=== PATIENT | female | born 1990 | race Hispanic/Latino ===

== ENCOUNTER → 2018-02-15 | Day surgery (SDC) | payer OTHER, SELFPAY ==
[~2018-02-15] MED LIST: BIRTH CONTROL; FENTANYL CITRATE/PF 100MCG/2 ML INJ ONE; HYOSCYAMINE SULFATE 0.5 MG/ML INJ ONE; KETAMINE HCL INJ 50 MG/ML 10 ML VIAL ONE; LIDOCAINE HCL 2% LOCAL INJ 5 ML SDV VIAL INJ ONE; MIDAZOLAM HCL 2 MG/2 ML VIAL ONE; PROPOFOL IV EMULSION 10 MG/ML 50 ML VIAL ONE
[2018-02-15 12:39] LABS: C DIFFICILE TOXIN A&B AMP PROB NEGATIVE (NEGATIVE); WBC,FECAL (FECAL LACTOFERRIN) NEGATIVE (NEGATIVE)
--- NOTE | 2018-02-15 14:37 | Operative Report ---
DATE OF PROCEDURE: February 15, 2018 PROCEDURE PERFORMED: Colonoscopy and a polypectomy with biopsies. INDICATIONS FOR COLONOSCOPY: Abdominal pain, recurrent diarrhea, abnormal CT scan. MEDICATIONS: Patient was done under MAC. Please see anesthesiologist's note. PROCEDURE: With the patient in left lateral decubitus position, flexible fiberoptic Olympus colonoscope was inserted into the rectum and advanced all the way to the cecum. Because of overlying the cecum, it appeared to be within normal limits. The ileocecal valve was intubated and the scope was advanced into the terminal ileum. Biopsies were obtained. The scope was then withdrawn back into the colon. It was then withdrawn slowly. Mucosa overlying the ascending and the transverse grossly appeared to be within normal limits. There were some patchy erythema and low-grade to moderate edema noted in the left colon. Multiple random biopsies were obtained. One polyp was hot biopsied from the sigmoid colon. The distal rectum also manifested similar inflammatory findings and biopsies were obtained. The scope was then retroflexed into the distal rectum. Small internal hemorrhoids were noted none of which was actively bleeding. The scope was then straightened out and it was subsequently withdrawn after securing an adequate stool specimen that was sent for the appropriate stool studies. Patient tolerated the procedure well. IMPRESSION 1. Mild patchy left-sided colitis. 2. Sigmoid colon polyp, hot biopsied. 3. Proctitis, biopsied. 4. Internal hemorrhoids none actively bleeding. PLAN: Follow up histology. Check CRP, sed rate, and an IBD panel. VSL#3 one p.o. daily and Bentyl 10 mg 1 p.o. t.i.d. Job#: [id number] [facility]
== END | disposition home or self-care (01) ==
LOC: OR 07:19
PROVIDERS: ATTEND Internal Medicine Gastroenterology
DX: K51.50 Left sided colitis without complications (principal); K63.5 Polyp of colon; R19.7 Diarrhea, unspecified; R10.33 Periumbilical pain; K21.9 Gastro-esophageal reflux disease without esophagitis; K62.89 Other specified diseases of anus and rectum; K64.8 Other hemorrhoids; Z01.812 Encounter for preprocedural laboratory examination
CPT/HCPCS: 45384; 81025; 83630; 83993; 87045; 87177; 87328; 87493; J1980; J2001; J2250; 45378; 45380

== ENCOUNTER 2019-12-31 15:14 | Emergency (ER) | payer OTHER ==
[~2019-12-31] VITALS: Ht 167.6 cm; Wt 94.8 kg
[~2019-12-31 15:14] MED LIST changes: -FENTANYL CITRATE/PF 100MCG/2 ML INJ ONE; -HYOSCYAMINE SULFATE 0.5 MG/ML INJ ONE; -KETAMINE HCL INJ 50 MG/ML 10 ML VIAL ONE; -LIDOCAINE HCL 2% LOCAL INJ 5 ML SDV VIAL INJ ONE; -MIDAZOLAM HCL 2 MG/2 ML VIAL ONE; -PROPOFOL IV EMULSION 10 MG/ML 50 ML VIAL ONE
[2019-12-31 16:31] LABS: BASOPHILS # (AUTO) 0.1 (0.0-0.1); BASOPHILS % 0.6 % (0.0-1.0); EOSINOPHILS # (AUTO) 0.1 (0.0-0.4); EOSINOPHILS % 1.5 % (0.0-6.0); HEMATOCRIT 37.8 % (34.2-44.1); HEMOGLOBIN 12.5 g/dL (12.0-16.0); LYMPHOCYTES % 34.7 % (18.0-39.1); MEAN CORPUSCULAR HGB CONC 33.1 g/dL (31-35); MEAN CORPUSCULAR VOLUME 78.6 fL (81-99); MONOCYTES # (AUTO) 0.6 (0.2-0.8); MONOCYTES % 6.4 % (4.4-11.3); NEUTROPHILS # (AUTO) 4.8 (2.1-6.9); NEUTROPHILS % 56.5 % (38.7-80.0); PLATELET COUNT 356 x10e3/uL (140-360); RED BLOOD COUNT 4.81 x10e6/uL (3.6-5.1); RED CELL DISTRIBUTION WIDTH 13.2 % (11.7-14.4)
[2019-12-31 16:46] LABS: INR 0.95; PARTIAL THROMBOPLASTIN TIME 26.3 seconds (23.8-35.5); PROTHROMBIN TIME 13.2 seconds (11.9-14.5)
[2019-12-31 16:53] LABS: ALANINE AMINOTRANSFERASE 15 IU/L (0-55); ALBUMIN 4.4 g/dL (3.5-5.0); ALBUMIN/GLOBULIN RATIO 1.3 (0.8-2.0); ALKALINE PHOSPHATASE 68 IU/L (40-150); ANION GAP 14.4 mmol/L (8-16); BLOOD UREA NITROGEN 7 mg/dL (7-26); BUN/CREATININE RATIO 10 (6-25); CALCIUM 9.5 mg/dL (8.4-10.2); CARBON DIOXIDE 22 mmol/L (22-29); CHLORIDE 106 mmol/L (98-107); CREATINE KINASE 46 IU/L (29-168); EST GLOMERULAR FILTRATION RATE > 60 ML/MIN (60-); GLUCOSE 93 mg/dL (74-118); POTASSIUM 3.4 mmol/L (3.5-5.1); SODIUM 139 mmol/L (136-145)
--- NOTE | 2019-12-31 17:06 | Diagnostic Imaging Report ---
EXAMINATION: CHEST SINGLE (PORTABLE) INDICATION: Palpitations. COMPARISON: None FINDINGS: TUBES and LINES: None. LUNGS: Low lung volumes with bronchovascular crowding. Lungs are clear. No consolidations. PLEURA: No pleural effusion or pneumothorax. HEART AND MEDIASTINUM: The cardiomediastinal silhouette is unremarkable. BONES AND SOFT TISSUES: No acute osseous lesion. Soft tissues are unremarkable. UPPER ABDOMEN: No free air under the diaphragm. IMPRESSION: No acute thoracic radiographic abnormality. Signed by: Lyndsay Gutierrez MD on 12/31/2019 5:03 PM
[2019-12-31] MEDS ORDERED: PANTOPRAZOLE SO40 MG PO (17:13)
[2019-12-31] MEDS ORDERED: POTASSIUM CHLO20 ME2 PO (20:09)
--- NOTE | 2019-12-31 20:09 | Emergency Department Note ---
History of Present Illnes History of Present Illness Chief Complaint: General Medicine Complaints History of Present Illness This is a 29 year old female . Historian: Patient Arrival Mode: Car Past Medical/Family History Physician Review I have reviewed the patient's past medical and family history. Any updates have been documented here. Past Medical History Recent Fever: No Clinical Suspicion of Infectio: No New/Unexplained Change in Ment: No Past Medical History: None Past Surgical History: Cholecysctectomy, Appendectomy, Social History Smoking Cessation: Never Smoker Any Illegal Drug Use: No Physically hurt or threatened: No Other Any Pre-Existing Lines (PICC,: No Physical Exam Related Data Allergies: Coded Allergies: No Known Allergies (Unverified , 02/14/18) Triage Vital Signs Vital Signs Date Time Temp Pulse Resp B/P (MAP) Pulse Ox O2 Delivery O2 Flow Rate FiO2 12/31/19 15:52 98.4 78 16 159/77 100 Room Air Physical Exam CONSTITUTIONAL HENT EYES NECK PULMONARY CARDIOVASCULAR GASTROINTESTINAL GENITOURINARY SKIN MUSCULOSKELETAL NEUROLOGICAL PSYCHOLOGICAL Results Laboratory Result Diagram: 12/31/19 1608 12/31/19 1608 Laboratory Laboratory Tests Test 12/31/19 16:08 White Blood Count 8.58 x10e3/uL (4.8-10.8) Red Blood Count 4.81 x10e6/uL (3.6-5.1) Hemoglobin 12.5 g/dL (12.0-16.0) Hematocrit 37.8 % (34.2-44.1) Mean Corpuscular Volume 78.6 fL (81-99) Mean Corpuscular Hemoglobin 26.0 pg (28-32) Mean Corpuscular Hemoglobin Concent 33.1 g/dL (31-35) Red Cell Distribution Width 13.2 % (11.7-14.4) Platelet Count 356 x10e3/uL (140-360) Neutrophils (%) (Auto) 56.5 % (38.7-80.0) Lymphocytes (%) (Auto) 34.7 % (18.0-39.1) Monocytes (%) (Auto) 6.4 % (4.4-11.3) Eosinophils (%) (Auto) 1.5 % (0.0-6.0) Basophils (%) (Auto) 0.6 % (0.0-1.0) Neutrophils # (Auto) 4.8 (2.1-6.9) Lymphocytes # (Auto) 3.0 (1.0-3.2) Monocytes # (Auto) 0.6 (0.2-0.8) Eosinophils # (Auto) 0.1 (0.0-0.4) Basophils # (Auto) 0.1 (0.0-0.1) Absolute Immature Granulocyte (auto 0.03 x10e3/uL (0-0.1) Prothrombin Time 13.2 seconds (11.9-14.5) Prothromb Time International Ratio 0.95 Activated Partial Thromboplast Time 26.3 seconds (23.8-35.5) Sodium Level 139 mmol/L (136-145) Potassium Level 3.4 mmol/L (3.5-5.1) Chloride Level 106 mmol/L (98-107) Carbon Dioxide Level 22 mmol/L (22-29) Anion Gap 14.4 mmol/L (8-16) Blood Urea Nitrogen 7 mg/dL (7-26) Creatinine 0.70 mg/dL (0.57-1.11) Estimat Glomerular Filtration Rate > 60 ML/MIN (60-) BUN/Creatinine Ratio 10 (6-25) Glucose Level 93 mg/dL (74-118) Calcium Level 9.5 mg/dL (8.4-10.2) Magnesium Level 1.8 MG/DL (1.3-2.1) Total Bilirubin 0.2 mg/dL (0.2-1.2) Aspartate Amino Transf (AST/SGOT) 15 IU/L (5-34) Alanine Aminotransferase (ALT/SGPT) 15 IU/L (0-55) Alkaline Phosphatase 68 IU/L (40-150) Creatine Kinase 46 IU/L (29-168) Creatine Kinase MB 1.00 ng/mL (0-5.0) Troponin I 0.001 ng/mL (0-0.300) B-Type Natriuretic Peptide 27.9 pg/mL (0-100) Total Protein 7.9 g/dL (6.5-8.1) Albumin 4.4 g/dL (3.5-5.0) Globulin 3.5 g/dL (2.3-3.5) Albumin/Globulin Ratio 1.3 (0.8-2.0) Procedures 12 Lead ECG Interpretation ECG Interpretation : ECG: ECG 1 [facility]: Interpreted by ED physician Date: Dec 31, 2019 Time: 07:50 Prior ECG tracings: reviewed Rhythm: sinus rhythm Rate: normal BPM: 75 QRS axis: normal ST segments normal: Yes T waves normal: Yes Clinical Impression: abnormal ECG (SR WITH PVC) Assessment & Plan Assessment & Plan Final Impression: (1) Palpitations (2) Hypokalemia (3) Sinus arrhythmia seen on electrocardiogram Depart Disposition: HOME, SELF-CARE Last Vital Signs Date Time Temp Pulse Resp B/P (MAP) Pulse Ox O2 Delivery O2 Flow Rate FiO2 12/31/19 17:38 62 18 127/77 100 Room Air 12/31/19 15:52 98.4 Home Meds Active Scripts Potassium Chloride (Potassium Chloride) 20 Meq Tablet.er, 40 MEQ PO DAILY, #4 TAB TAKE BOTH PILLS AT ONCE. START TOMORROW NIGHT Prov:NATALIE NAZARIO 12/31/19 Reported Medications Pantoprazole Sodium* (PROTONIX) 40 Mg Tablet.dr, 40 MG PO DAILY 12/31/19 Discontinued Reported Medications [ Control] No Conflict Check, DAILY 02/15/18 NATALIE NAZARIO Dec 31, 2019 20:09
[2019-12-31] MEDS ORDERED: POTASSIUM CHLORIDE 20 MEQ TAB CR PO STA (20:10)
== END 2019-12-31 20:57 | disposition home or self-care (01) ==
LOC: ER 16:00
DX: R00.2 Palpitations (principal); E87.6 Hypokalemia; R94.31 Abnormal electrocardiogram [ECG] [EKG]
CPT/HCPCS: 36415; 71045; 80053; 82550; 82553; 83735; 83880; 84484; 85025; 85610; 85730; 93005; 99284

== ENCOUNTER 2021-11-24 16:12 | Emergency (ER) | payer OTHER ==
[~2021-11-24] VITALS: Ht 165.1 cm; Wt 99.8 kg
[~2021-11-24 16:12] MED LIST changes: +PANTOPRAZOLE SO40 MG PO; +POTASSIUM CHLO20 ME2 PO
[2021-11-24] MEDS ORDERED: ONDANSETRON HCL INJ 2MG/ML 2ML 2 MG/ML VIAL IV STA (16:37)
[2021-11-24] MEDS ORDERED: KETOROLAC TROMETHAMINE 30 MG/ML VIAL IV STA (16:37)
[2021-11-24] MEDS ORDERED: FAMOTIDINE 20 MG/2 ML VIAL IV STA (16:38)
[2021-11-24] MEDS ORDERED: SODIUM CHLORIDE 0.9% 1000ML 1,000 ML IV SCH (16:45)
[2021-11-24] MEDS ORDERED: ONDANSETRON HCL INJ 2MG/ML 2ML 2 MG/ML VIAL ONE (17:12)
[2021-11-24] MEDS ORDERED: KETOROLAC TROMETHAMINE 30 MG/ML VIAL ONE (17:12)
[2021-11-24] MEDS ORDERED: FAMOTIDINE 20 MG/2 ML VIAL IV ONE (17:12)
[2021-11-24] MEDS ORDERED: IOPAMIDOL 370 MG/ML 100 ML INFUS..BTL INJ ONE (18:15)
[2021-11-24] MEDS ORDERED: METHYLPREDNISOLONE SOD SUCC 125 MG/2ML VIAL IV ONE (19:45)
[2021-11-24] MEDS ORDERED: METHYLPREDNISOLONE SOD SUCC 125 MG/2ML VIAL ONE (19:48)
[2021-11-24] MEDS ORDERED: PREDNISONE20 MG PO (19:51)
[2021-11-24] MEDS ORDERED: ONDANSETRON ODT4 MG PO (19:52)
== END 2021-11-24 17:50 | disposition home or self-care (01) ==
LOC: FSED 16:26
DX: R10.31 Right lower quadrant pain (principal); K50.90 Crohn's disease, unspecified, without complications; R19.7 Diarrhea, unspecified
CPT/HCPCS: 74177; 80048; 80076; 81003; 81025; 85025; 99284; J1885; J2405; J2930; Q9967

== ENCOUNTER 2022-02-21 09:01 | Emergency (ER) | payer OTHER ==
[~2022-02-21] VITALS: Ht 165.1 cm; Wt 99.8 kg
[~2022-02-21 09:01] MED LIST changes: +ONDANSETRON ODT4 MG PO; +PREDNISONE20 MG PO
[2022-02-21] MEDS ORDERED: METHYLPREDNISOLONE SOD SUCC 125 MG/2ML VIAL IM STA (09:41)
[2022-02-21] MEDS ORDERED: DICYCLOMINE HCL20 MG PO (10:26)
[2022-02-21] MEDS ORDERED: BUDESONIDE ER9 MG PO (10:26)
== END 2022-02-21 10:00 | disposition home or self-care (01) ==
LOC: ER 09:05
DX: R10.31 Right lower quadrant pain (principal); R11.0 Nausea; Z87.19 Personal history of other diseases of the digestive system
CPT/HCPCS: 99282; J2930

== ENCOUNTER 2022-08-06 00:14 | Emergency (ER) | payer OTHER ==
[~2022-08-06] VITALS: Ht 167.6 cm; Wt 99.8 kg
[~2022-08-06 00:14] MED LIST changes: +BUDESONIDE ER9 MG PO; +DICYCLOMINE HCL20 MG PO; +PREDNISONE50 MG PO
[2022-08-06] MEDS ORDERED: SODIUM CHLORIDE 0.9% 1000ML 1,000 ML IV STA (00:39)
[2022-08-06] MEDS ORDERED: FAMOTIDINE 20 MG/2 ML VIAL IV ONE ×2 (00:45→00:55)
[2022-08-06] MEDS ORDERED: DEXAMETHASONE SOD PHOS INJ 4 MG/ML SDV IV ONE (00:45)
[2022-08-06] MEDS ORDERED: KETOROLAC TROMETHAMINE 30 MG/ML VIAL IV ONE (00:45)
[2022-08-06] MEDS ORDERED: DEXAMETHASONE SOD PHOS INJ 4 MG/ML SDV ONE (00:53)
[2022-08-06] MEDS ORDERED: SODIUM CHLORIDE 0.9% 1000ML 1,000 ML ONE (00:54)
[2022-08-06] MEDS ORDERED: CEFTRIAXONE 1 GM VIAL ONE (00:54)
[2022-08-06] MEDS ORDERED: KETOROLAC TROMETHAMINE 30 MG/ML VIAL ONE (00:54)
[2022-08-06] MEDS ORDERED: CEFTRIAXONE 1 GM VIAL IV ONE (01:00)
[2022-08-06] MEDS ORDERED: ONDANSETRON ODT4 MG PO (01:34)
[2022-08-06] MEDS ORDERED: IBUPROFEN200 MG PO (01:34)
[2022-08-06] MEDS ORDERED: CEFDINIR300 MG PO (01:34)
== END 2022-08-06 02:12 | disposition home or self-care (01) ==
LOC: FSED 00:21
DX: R53.81 Other malaise (principal); R53.83 Other fatigue; D72.829 Elevated white blood cell count, unspecified; Z87.19 Personal history of other diseases of the digestive system
CPT/HCPCS: 71046; 80053; 81003; 85025; 87400; 99284; J0696; J1100; J1885; J7030

== ENCOUNTER 2022-08-08 00:25 | Emergency (ER) | payer OTHER ==
[~2022-08-08] VITALS: Ht 167.6 cm; Wt 99.8 kg
[~2022-08-08 00:25] MED LIST changes: +CEFDINIR300 MG PO; +IBUPROFEN200 MG PO
[2022-08-08] MEDS ORDERED: SODIUM CHLORIDE 0.9% 1000ML 1,000 ML IV ONE (00:45)
[2022-08-08] MEDS ORDERED: SODIUM CHLORIDE 0.9% 1000ML 1,000 ML ONE (00:59)
== END 2022-08-08 02:00 | disposition home or self-care (01) ==
LOC: FSED 00:30
DX: R53.1 Weakness (principal); E86.0 Dehydration; R05.9 Cough, unspecified; R51.9 Headache, unspecified; Z20.822 Contact with and (suspected) exposure to COVID-19
CPT/HCPCS: 74176; 80053; 85025; 99283; J7030; U0002

== ENCOUNTER 2023-02-12 09:06 | Emergency (ER) | payer OTHER ==
[~2023-02-12] VITALS: Ht 167.6 cm; Wt 99.8 kg
[2023-02-12] MEDS ORDERED: KETOROLAC TROMETHAMINE 30 MG/ML VIAL IV STA (09:20)
[2023-02-12] MEDS ORDERED: ONDANSETRON HCL INJ 2MG/ML 2ML 2 MG/ML VIAL IV STA (09:20)
[2023-02-12] MEDS ORDERED: SODIUM CHLORIDE 0.9% 1000ML 1,000 ML IV STA (09:20)
[2023-02-12] MEDS ORDERED: DICYCLOMINE HCL 20 MG/2 ML VIAL IM ONE (09:30)
[2023-02-12 09:54] LABS: BASOPHILS # (AUTO) 0.1 (0.0-0.1); BASOPHILS % 0.3 % (0.0-1.0); EOSINOPHILS # (AUTO) 0.1 (0.0-0.4); EOSINOPHILS % 0.5 % (0.0-6.0); HEMATOCRIT 41.4 % (34.2-44.1); LYMPHOCYTES # (AUTO) 1.7 (1.0-3.2); LYMPHOCYTES % 8.9 % (18.0-39.1); MEAN CORPUSCULAR HEMOGLOBIN 26.4 pg (28-32); MEAN CORPUSCULAR HGB CONC 33.8 g/dL (31-35); MEAN CORPUSCULAR VOLUME 78.1 fL (81-99); MONOCYTES % 5.4 % (4.4-11.3); NEUTROPHILS # (AUTO) 15.9 (2.1-6.9); NEUTROPHILS % 84.4 % (38.7-80.0); PLATELET COUNT 367 x10e3/uL (140-360); RED CELL DISTRIBUTION WIDTH 12.7 % (11.7-14.4); WHITE BLOOD COUNT 18.84 x10e3/uL (4.8-10.8)
[2023-02-12 10:19] LABS: ALANINE AMINOTRANSFERASE 14 IU/L (0-55); ALBUMIN 3.8 g/dL (3.5-5.0); ALBUMIN/GLOBULIN RATIO 0.8 (0.8-2.0); ALKALINE PHOSPHATASE 70 IU/L (40-150); ANION GAP 15.4 mmol/L (8-16); CALCIUM 10.1 mg/dL (8.4-10.2); CARBON DIOXIDE 18 mmol/L (22-29); CHLORIDE 107 mmol/L (98-107); CREATININE, SERUM 0.75 mg/dL (0.57-1.11); MAGNESIUM 1.9 MG/DL (1.3-2.1); POTASSIUM 3.4 mmol/L (3.5-5.1); SODIUM 137 mmol/L (136-145)
[2023-02-12] MEDS ORDERED: IOPAMIDOL 370 MG/ML 100 ML INFUS..BTL INJ ONE (10:19)
[2023-02-12 10:34] LABS: BLOOD UREA NITROGEN 15 mg/dL (7-26); BUN/CREATININE RATIO 20 (6-25)
[2023-02-12 10:48] LABS: INR 0.97; PARTIAL THROMBOPLASTIN TIME 25.9 seconds (23.8-35.5); PROTHROMBIN TIME 13.1 seconds (11.9-14.5)
[2023-02-12 12:26] LABS: CLARITY,URINE CLEAR (CLEAR); COLOR,URINE YELLOW (YELLOW); KETONES,URINE NEGATIVE (NEGATIVE); LEUKOCYTE ESTERASE ,URINE NEGATIVE (NEGATIVE); NITRITE,URINE NEGATIVE (NEGATIVE); PROTEIN,URINE DIPSTICK TRACE (NEGATIVE); URINE UROBILINOGEN 0.2 mg/dL (0.2 - 1)
[2023-02-12 12:47] LABS: EPITHELIAL CELLS,URINE FEW /LPF
[2023-02-12 12:48] LABS: BACTERIA,URINE RARE /HPF
[2023-02-12 12:49] LABS: RBC,URINE 0-5 /HPF (0-5); WBC,URINE (MAN) 0-5 /HPF (0-5)
[2023-02-12] MEDS ORDERED: DICYCLOMINE HCL20 MG PO (13:46)
[2023-02-12 14:17] VITALS: BP 134/87; PULSE 77; RESP 16; TEMP 98.1; O2SAT 100
== END 2023-02-12 14:21 | disposition home or self-care (01) ==
LOC: ER 09:11
DX: R10.30 Lower abdominal pain, unspecified (principal); R11.2 Nausea with vomiting, unspecified; Z87.19 Personal history of other diseases of the digestive system
CPT/HCPCS: 36415; 74177; 80053; 81001; 81025; 83735; 84702; 85025; 85610; 85730; 87086; 99284; C9113; J0500; J1885; J2405; J7030; Q9967

== ENCOUNTER 2023-05-04 20:51 | Emergency (ER) | payer OTHER ==
[~2023-05-04] VITALS: Ht 167.6 cm; Wt 99.8 kg
[2023-05-04] MEDS ORDERED: IBUPROFEN 600 MG TAB PO STA (21:10)
[2023-05-04 21:40] LABS: BASOPHILS # (AUTO) 0.1 (0.0-0.1); BASOPHILS % 0.5 % (0.0-1.0); EOSINOPHILS # (AUTO) 0.2 (0.0-0.4); EOSINOPHILS % 1.5 % (0.0-6.0); HEMATOCRIT 41.3 % (34.2-44.1); HEMOGLOBIN 13.7 g/dL (12.0-16.0); LYMPHOCYTES # (AUTO) 5.9 (1.0-3.2); LYMPHOCYTES % 53.1 % (18.0-39.1); MEAN CORPUSCULAR HEMOGLOBIN 26.9 pg (28-32); MEAN CORPUSCULAR HGB CONC 33.2 g/dL (31-35); MEAN CORPUSCULAR VOLUME 81.1 fL (81-99); MONOCYTES # (AUTO) 0.7 (0.2-0.8); MONOCYTES % 6.6 % (4.4-11.3); NEUTROPHILS # (AUTO) 4.2 (2.1-6.9); NEUTROPHILS % 38.1 % (38.7-80.0); PLATELET COUNT 311 x10e3/uL (140-360); RED BLOOD COUNT 5.09 x10e6/uL (3.6-5.1); RED CELL DISTRIBUTION WIDTH 12.7 % (11.7-14.4); WHITE BLOOD COUNT 11.14 x10e3/uL (4.8-10.8)
[2023-05-04 21:56] LABS: ANION GAP 14.7 mmol/L (8-16); CALCIUM 9.8 mg/dL (8.4-10.2); CREATININE, SERUM 0.88 mg/dL (0.57-1.11); POTASSIUM 3.7 mmol/L (3.5-5.1)
[2023-05-04 22:00] VITALS: O2SAT 100
[2023-05-04] MEDS ORDERED: FIORICET 50-301 EACH PO (22:21)
== END 2023-05-04 22:28 | disposition home or self-care (01) ==
LOC: ER 20:55
DX: R51.9 Headache, unspecified (principal); R03.0 Elevated blood-pressure reading, without diagnosis of hypertension; Z87.19 Personal history of other diseases of the digestive system
CPT/HCPCS: 36415; 80048; 85025; 99284